=== PATIENT | female | born 1950 | race Caucasian/White ===

== ENCOUNTER 2016-12-22 05:21 | Inpatient (IN) ==
[2016-12-22] MEDS ORDERED: Ondansetron 4 MG/2 ML VIAL IVP ONE (05:48)
[2016-12-22] MEDS ORDERED: 0.9 % Sodium Chloride 1,000 ML IVC ONE (05:48)
--- NOTE | 2016-12-22 05:57 | Emergency Department Note ---
Disposition Clinical Impression: Nausea vomiting and diarrhea Pancreatic cancer Qualifiers: Pancreatic malignancy location: unspecified Qualified Code(s): C25.9 - Malignant neoplasm of pancreas, unspecified Disposition: Still a Patient Condition: Fair Referrals: Unassigned,Provider [Primary Care Provider] - Forms: ED Satisfaction Letter Time of Disposition: 06:20 Nausea/Vomiting/Diarrhea HPI - General Chief complaint: ED Nausea/Vomiting/Diarrhea Stated complaint: N/V/D-Chemo Time Seen by Provider: 12/22/16 05:32 Source: patient, family Limitations: no limitations Nursing Notes Reviewed: Yes Vital Signs Reviewed: Yes - History of Present Illness HPI Narrative: 66-year-old female diabetic former smoker with known history of pancreatic cancer ambulates to exam room with complaints of diarrhea and nausea vomiting. Nausea and vomiting occurs approximately every 3 days for the past 3 weeks. She states she was diagnosed with pancreatic cancer 2 years ago and was treated at that time with chemotherapy and whipple procedure. She mentions cancer had returned earlier this year was restarted on chemotherapy. She is followed by [facility] oncology, and states her last chemotherapy was approximately 2 weeks ago. Patient also mentioned she was visiting friends yesterday became diaphoretic and had vision changes, and her blood sugars checked and was shown to be in the 20s. She mentions diarrhea has been occurring for 4 weeks, denies any bloody stools. She mentions 8 pound weight loss since last month. she mentions some abdominal pain from the vomitting, other jensen today she denies any confusion, vision changes, weakness, diaphoresis, fevers, chest pain , shortness breath, near-syncopal symptoms, syncope. - Related Data Allergies Allergy/AdvReac Type Severity Reaction Status Date / Time cephalexin [From Keflex] Allergy Severe Rash Verified 12/22/16 05:28 influenza virus vaccine ts Allergy Severe Rash Verified 12/22/16 05:28 [id number] (36 mos+) [From Fluarix] Penicillins [PCN] Allergy Severe Rash Verified 12/22/16 05:28 rabies vaccine, duck-embryo Allergy Severe Rash Verified 12/22/16 05:28 [Rabies Vaccine,Duck-Embryo] Sulfa (Sulfonamide Allergy Severe Rash Verified 12/22/16 05:28 Antibiotics) All systems ED: reviewed and negative except as stated. Constitutional: Denies: fever, chills Eyes: Denies: eye pain ENT ED: Denies: ear pain Cardiovascular: Denies: chest pain, palpitations Respiratory: Denies: dyspnea Gastrointestinal: Reports: as per HPI. 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 - Social History Smoking Status: Former smoker Alcohol use: Reports: none Drug use: Reports: none Physical Exam - General Limitations: no limitations General appearance: alert, in no apparent distress - Head Head exam: normocephalic - Eye Eye exam: Present: EOMI - ENT ENT exam: normal oropharynx, mucous membranes moist - Neck Neck exam: Present: full ROM - Chest Chest inspection: Present: symmetric chest wall rise - Respiratory Respiratory exam: Absent: respiratory distress - Cardiovascular Cardiovascular exam: Present: tachycardia - Abdominal Exam Abdominal exam: Present: soft, Non-Tender - Extremities Exam Extremities exam: Present: full ROM, normal capillary refill - Back Exam Back exam: Present: full ROM - Neurological Exam Neurological exam: Present: alert, oriented X3 - Psychiatric Psychiatric exam: Present: normal affect, normal mood - Skin Skin exam: Present: warm, dry, intact, normal color. Absent: rash, cyanosis, diaphoresis Course Course Narrative: Patient presents with nausea vomiting diarrhea. Known history of pancreatic cancer. Last chemotherapy at [facility] approximately 2 weeks ago. Had episode of hypoglycemia yesterday. Patient denies any recent illness, fever, confusion. Patient denies any nausea at this time. Patient seen and examined. She is in no acute distress, she does on the toxic. She is slightly tachycardia otherwise vitals within normal limits. Will initiate evaluation for possible source of infection, lab work. Accucheck 43 upon patient's arrive to exam room. Dextrose ordered. Fluids ordered. - Reevaluation(s) Reevaluation #1: At this time, it is the end my shift, care of this patient will be transferred over to take shift who will handle further workup orders, evaluation, and dispo. Please see their following documentation for details. Report given. Time: 06:19 Vital Signs Temperature 98.0 F 12/22/16 05:21 Pulse Rate 118 12/22/16 05:21 Respiratory Rate 16 12/22/16 05:21 Blood Pressure 121/75 12/22/16 05:21 O2 Sat by Pulse Oximetry 98 12/22/16 05:21 Temperature 98.0 F 12/22/16 05:21 Pulse Rate 118 12/22/16 05:21 Respiratory Rate 16 12/22/16 05:21 Blood Pressure 121/75 12/22/16 05:21 O2 Sat by Pulse Oximetry 98 12/22/16 05:21 Oxygen Delivery Oxygen Delivery Room Air Nausea/Vomiting/Diarrhea - Lab Data Lab Results 12/22/16 12/22/16 Range/Units 06:02 06:03 POC Glucose 43 L* 44 L* (58-89)
[2016-12-22] MEDS ORDERED: *HR* Dextrose 50 % in Water (Syg) 50 ML SYRINGE IVP ONE (06:05)
--- NOTE | 2016-12-22 06:18 | Emergency Department Note ---
Disposition Clinical Impression: Nausea vomiting and diarrhea, Hypokalemia Pancreatic cancer Qualifiers: Pancreatic malignancy location: unspecified Qualified Code(s): C25.9 - Malignant neoplasm of pancreas, unspecified Disposition: Admitted As Inpatient Condition: Fair Referrals: Unassigned,Provider [Non-Partnered Physician] - Forms: ED Satisfaction Letter Time of Disposition: 07:58 Nausea/Vomiting/Diarrhea HPI - General Chief complaint: ED Nausea/Vomiting/Diarrhea Stated complaint: N/V/D-Chemo Time Seen by Provider: 12/22/16 05:32 Source: patient, family Limitations: no limitations - History of Present Illness Pt Subjective Complaint: nausea, vomiting, diarrhea - Related Data Allergies Allergy/AdvReac Type Severity Reaction Status Date / Time cephalexin [From Keflex] Allergy Severe Rash Verified 12/22/16 05:28 influenza virus vaccine ts Allergy Severe Rash Verified 12/22/16 05:28 [id number] (36 mos+) [From Fluarix] Penicillins [PCN] Allergy Severe Rash Verified 12/22/16 05:28 rabies vaccine, duck-embryo Allergy Severe Rash Verified 12/22/16 05:28 [Rabies Vaccine,Duck-Embryo] Sulfa (Sulfonamide Allergy Severe Rash Verified 12/22/16 05:28 Antibiotics) Past Medical History - Past Medical History Medical history: Reports: cancer, diabetes, valvular heart disease Psychiatric history: Reports: 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 Absent: nystagmus - ENT ENT exam: mucous membranes moist - Neck Neck exam: Present: normal inspection, full ROM, trachea midline - Chest Chest inspection: Present: normal inspection, symmetric chest wall rise - Cardiovascular Cardiovascular exam: Present: regular rate, normal rhythm, normal heart sounds - Abdominal Exam Abdominal exam: Present: soft, tenderness, normal bowel sounds. Absent: distention, guarding, rebound, rigidity Abdominal tenderness: Present: diffuse, mild - Extremities Exam Extremities exam: Present: normal inspection, full ROM. Absent: tenderness, pedal edema - Neurological Exam Neurological exam: Present: alert, oriented X3 - Psychiatric Psychiatric exam: Present: normal affect, normal mood - Skin Skin exam: Present: warm, dry, intact, normal color. Absent: rash, cyanosis, diaphoresis, erythema, pallor, mottled Course Course Narrative: 0600: I have assumed care of this patient from NAA Ndiaye due to shift change. Briefly, the patient is a 66 year old female with a known history of pancreatic cancer. She presented with a complaint of diarrhea for the last 4 weeks and intermittent episodes of nausea and vomiting for the past 3 weeks. She states that she is experiencing these episodes of N/V "about every 3 days", however her diarrhea has been consistent. She also complains of an episode of diaphoresis associated with hypoglycemia yesterday evening. She states that when her checked her glucose, it was found to be 25. She also c/o an 8 pound weight loss over the past month. She has fairly recently been re-started on chemotherapy in October of this year. She is followed by oncology at the [facility]. She denies any fever, cough, chest pain, shortness of breath, bloody stools. She does admit to a fairly recent, but brief antibiotic use. She states that approximately 2 weeks ago, she was started on a 10 day course of Levaquin for bronchitis, per her PCP. She states that the Levaquin hurt her stomach and caused diarrhea. She was instructed to discontinue the levaquin after only 3 days. Please see previous midlevel documentation for care performed prior to 0600. 0642: I was notified by ADELSO Snyder at a critical low potassium of 2.4. A 40 mEq potassium rider has been ordered at this time. 0745: I discussed this patient's case with Dr. Teirney. Dr. Tierney had a face -to-face evaluation with the patient. Dr. Tierney recommends consultation with the hospitalist for admission to the hospitalist service. At this time, I am awaiting a callback from the hospitalist. - Consultations Consultation #1: I spoke with Dr. Nugent, hospitalist. Dr. Nugent accepts the patient for admission to the hospitalist service. Time: 08:18 Vital Signs Temperature 98.0 F 12/22/16 05:21 Pulse Rate 118 12/22/16 05:21 Respiratory Rate 16 12/22/16 05:21 Blood Pressure 121/75 03/11/17 05:21 O2 Sat by Pulse Oximetry 98 12/22/16 05:21 Temperature 98.0 F 12/22/16 05:21 Pulse Rate 85 12/22/16 08:06 Respiratory Rate 18 12/22/16 08:06 Blood Pressure 118/63 12/22/16 08:06 O2 Sat by Pulse Oximetry 99 12/22/16 08:06 Oxygen Delivery Oxygen Delivery Room Air Nausea/Vomiting/Diarrhea - MDM Narrative Medical decision making narrative: Cardiac monitoring and an EKG has been ordered for the sole purpose of the patient's hypokalemia. The patient denies any shortness of breath, or chest pain. - Medical Records Medical records reviewed: Yes I reviewed the patient's medical records. - Lab Data Lab results reviewed: Yes I reviewed the patient's lab results. Lab results narrative: Laboratory Last Values WBC 7.2 K/mcL (4.3-11.1) 12/22/16 06:15 RBC 2.55 M/mcL (3.82-4.97) L 12/22/16 06:15 Hgb 8.2 g/dL (11.5-15.4) L 12/22/16 06:15 Hct 24.6 % (35.3-44.9) L 12/22/16 06:15 MCV 96.5 fL (83.0-100.0) 12/22/16 06:15 MCH 32.2 pg (28.0-33.3) 12/22/16 06:15 MCHC 33.3 g/dL (31.6-35.5) 12/22/16 06:15 RDW 17.4 % (11.5-14.5) H 12/22/16 06:15 Plt Count 96 K/mcL (140-400) L 12/22/16 06:15 MPV 11.2 fL (9.4-12.4) 12/22/16 06:15 Seg Neutrophils % 62.0 % 12/22/16 06:15 Band Neutrophils % 8.0 % (0-4) H 12/22/16 06:15 Lymphocytes % 24.0 % 12/22/16 06:15 Monocytes % 6.0 % 12/22/16 06:15 Neutrophils # 5.0 K/mcL (1.6-8.9) 12/22/16 06:15 Lymphocytes # 1.7 K/mcL (0.6-4.6) 12/22/16 06:15 Monocytes # 0.4 K/mcL (0.0-1.3) 12/22/16 06:15 Toxic Granulation Present (Not Present) A 12/22/16 06:15 Platelet Estimate Decreased (Normal) L 12/22/16 06:15 Hypochromasia Present (Not Present) A 12/22/16 06:15 Anisocytosis 1+ (Not Present) A 12/22/16 06:15 Macrocytosis Present (Not Present) A 12/22/16 06:15 Tear Drop Cells 1+ (Not Present) A 12/22/16 06:15 Sodium 137 mEq/L (136-145) 12/22/16 06:15 Potassium 2.4 mEq/L (3.5-4.5) L* 12/22/16 06:15 Chloride 108 mEq/L (98-109) 12/22/16 06:15 Carbon Dioxide 16 mEq/L (19-29) L 12/22/16 06:15 BUN 3 mg/dL (7-20) L 12/22/16 06:15 Creatinine 0.66 mg/dL (0.57-1.11) 12/22/16 06:15 Est GFR ( Amer) > 60 (> 60) 12/22/16 06:15 Est GFR (Non-Af Amer) > 60 (> 60) 12/22/16 06:15 BUN/Creatinine Ratio 5 (6-26) L 12/22/16 06:15 Glucose 44 mg/dL (70-99) L 12/22/16 06:15 POC Glucose 44 (58-89) L* 12/22/16 06:03 Calculated Osmolality 278 (280-300) L 12/22/16 06:15 Lactic Acid 1.3 mmol/L (0.5-2.2) 12/22/16 07:30 Calcium 7.6 mg/dL (8.6-10.8) L 12/22/16 06:15 Phosphorus 2.9 mg/dL (2.3-4.7) 12/22/16 07:30 Magnesium 0.8 mg/dL (1.6-2.6) L 12/22/16 07:30 Urine Color Yellow (Yellow) 12/22/16 06:35 Urine Clarity Clear (Clear) 12/22/16 06:35 Urine pH 6.0 pH Units (5.0-8.0) 12/22/16 06:35 Ur Specific [place] 1.017 (1.010-1.025) 12/22/16 06:35 Urine Protein Trace mg/dL (Neg-Trace) 12/22/16 06:35 Urine Glucose (UA) >=1000 mg/dL (Normal) H 12/22/16 06:35 Urine Ketones Negative mg/dL (Negative) 12/22/16 06:35 Urine Blood Small (Negative) H 12/22/16 06:35 Urine Nitrite Negative (Negative) 12/22/16 06:35 Urine Bilirubin Negative (Negative) 12/22/16 06:35 Urine Urobilinogen Normal mg/dL (Normal) 12/22/16 06:35 Ur Leukocyte Esterase Negative (Negative) 12/22/16 06:35 Urine Microscopic RBC 0-3 per hpf (0-3) 12/22/16 06:35 Urine Microscopic WBC 5-15 per hpf (0-3) H 12/22/16 06:35 Ur Squamous Epith Cells Many per lpf (None-Few) H 12/22/16 06:35 Urine Bacteria Moderate per hpf (None-Few) H 12/22/16 06:35 Hyaline Casts None Seen per lpf (None-Few) 12/22/16 06:35 Ur Culture Indicated? YES (NO) A 12/22/16 06:35 Result diagrams: 12/22/16 06:15 12/22/16 06:15 Lab Results 12/22/16 12/22/16 12/22/16 Range/Units 06:02 06:03 06:15 WBC 7.2 (4.3-11.1) K/mcL RBC 2.55 L (3.82-4.97) M/mcL Hgb 8.2 L (11.5-15.4) g/dL Hct 24.6 L (35.3-44.9) % MCV 96.5 (83.0-100.0) fL MCH 32.2 (28.0-33.3) pg MCHC 33.3 (31.6-35.5) g/dL RDW 17.4 H (11.5-14.5) % Plt Count 96 L (140-400) K/mcL MPV 11.2 (9.4-12.4) fL Seg Neutrophils % 62.0 % Band Neutrophils % 8.0 H (0-4) % Lymphocytes % 24.0 % Monocytes % 6.0 % Neutrophils # 5.0 (1.6-8.9) K/mcL Lymphocytes # 1.7 (0.6-4.6) K/mcL Monocytes # 0.4 (0.0-1.3) K/mcL Toxic Granulation Present A (Not Present) Platelet Estimate Decreased L (Normal) Hypochromasia Present A (Not Present) Anisocytosis 1+ A (Not Present) Macrocytosis Present A (Not Present) Tear Drop Cells 1+ A (Not Present) Sodium (136-145) mEq/L Potassium (3.5-4.5) mEq/L Chloride (98-109) mEq/L Carbon Dioxide (19-29) mEq/L BUN (7-20) mg/dL Creatinine (0.57-1.11) mg/dL Est GFR ( Amer) (> 60) Est GFR (Non-Af Amer) (> 60) BUN/Creatinine Ratio (6-26) Glucose (70-99) mg/dL POC Glucose 43 L* 44 L* (58-89) Calculated Osmolality (280-300) Lactic Acid (0.5-2.2) mmol/L Calcium (8.6-10.8) mg/dL Phosphorus (2.3-4.7) mg/dL Magnesium (1.6-2.6) mg/dL Urine Color (Yellow) Urine Clarity (Clear) Urine pH (5.0-8.0) pH Units Ur Specific [place] (1.010-1.025) Urine Protein (Neg-Trace) mg/dL Urine Glucose (UA) (Normal) mg/dL Urine Ketones (Negative) mg/dL Urine Blood (Negative) Urine Nitrite (Negative) Urine Bilirubin (Negative) Urine Urobilinogen (Normal) mg/dL Ur Leukocyte Esterase (Negative) Urine Microscopic RBC (0-3) per hpf Urine Microscopic WBC (0-3) per hpf Ur Squamous Epith Cells (None-Few) per lpf Urine Bacteria (None-Few) per hpf Hyaline Casts (None-Few) per lpf Ur Culture Indicated? (NO) 12/22/16 12/22/16 12/22/16 Range/Units 06:15 06:35 07:30 WBC (4.3-11.1) K/mcL RBC (3.82-4.97) M/mcL Hgb (11.5-15.4) g/dL Hct (35.3-44.9) % MCV (83.0-100.0) fL MCH (28.0-33.3) pg MCHC (31.6-35.5) g/dL RDW (11.5-14.5) % Plt Count (140-400) K/mcL MPV (9.4-12.4) fL Seg Neutrophils % % Band Neutrophils % (0-4) % Lymphocytes % % Monocytes % % Neutrophils # (1.6-8.9) K/mcL Lymphocytes # (0.6-4.6) K/mcL Monocytes # (0.0-1.3) K/mcL Toxic Granulation (Not Present) Platelet Estimate (Normal) Hypochromasia (Not Present) Anisocytosis (Not Present) Macrocytosis (Not Present) Tear Drop Cells (Not Present) Sodium 137 (136-145) mEq/L Potassium 2.4 L* (3.5-4.5) mEq/L Chloride 108 (98-109) mEq/L Carbon Dioxide 16 L (19-29) mEq/L BUN 3 L (7-20) mg/dL Creatinine 0.66 (0.57-1.11) mg/dL Est GFR ( Amer) > 60 (> 60) Est GFR (Non-Af Amer) > 60 (> 60) BUN/Creatinine Ratio 5 L (6-26) Glucose 44 L (70-99) mg/dL POC Glucose (58-89) Calculated Osmolality 278 L (280-300) Lactic Acid 1.3 (0.5-2.2) mmol/L Calcium 7.6 L (8.6-10.8) mg/dL Phosphorus (2.3-4.7) mg/dL Magnesium (1.6-2.6) mg/dL Urine Color Yellow (Yellow) Urine Clarity Clear (Clear) Urine pH 6.0 (5.0-8.0) pH Units Ur Specific [place] 1.017 (1.010-1.025) Urine Protein Trace (Neg-Trace) mg/dL Urine Glucose (UA) >=1000 H (Normal) mg/dL Urine Ketones Negative (Negative) mg/dL Urine Blood Small H (Negative) Urine Nitrite Negative (Negative) Urine Bilirubin Negative (Negative) Urine Urobilinogen Normal (Normal) mg/dL Ur Leukocyte Esterase Negative (Negative) Urine Microscopic RBC 0-3 (0-3) per hpf Urine Microscopic WBC 5-15 H (0-3) per hpf Ur Squamous Epith Cells Many H (None-Few) per lpf Urine Bacteria Moderate H (None-Few) per hpf Hyaline Casts None Seen (None-Few) per lpf Ur Culture Indicated? YES A (NO) 12/22/16 Range/Units 07:30 WBC (4.3-11.1) K/mcL RBC (3.82-4.97) M/mcL Hgb (11.5-15.4) g/dL Hct (35.3-44.9) % MCV (83.0-100.0) fL MCH (28.0-33.3) pg MCHC (31.6-35.5) g/dL RDW (11.5-14.5) % Plt Count (140-400) K/mcL MPV (9.4-12.4) fL Seg Neutrophils % % Band Neutrophils % (0-4) % Lymphocytes % % Monocytes % % Neutrophils # (1.6-8.9) K/mcL Lymphocytes # (0.6-4.6) K/mcL Monocytes # (0.0-1.3) K/mcL Toxic Granulation (Not Present) Platelet Estimate (Normal) Hypochromasia (Not Present) Anisocytosis (Not Present) Macrocytosis (Not Present) Tear Drop Cells (Not Present) Sodium (136-145) mEq/L Potassium (3.5-4.5) mEq/L Chloride (98-109) mEq/L Carbon Dioxide (19-29) mEq/L BUN (7-20) mg/dL Creatinine (0.57-1.11) mg/dL Est GFR ( Amer) (> 60) Est GFR (Non-Af Amer) (> 60) BUN/Creatinine Ratio (6-26) Glucose (70-99) mg/dL POC Glucose (58-89) Calculated Osmolality (280-300) Lactic Acid (0.5-2.2) mmol/L Calcium (8.6-10.8) mg/dL Phosphorus 2.9 (2.3-4.7) mg/dL Magnesium 0.8 L (1.6-2.6) mg/dL Urine Color (Yellow) Urine Clarity (Clear) Urine pH (5.0-8.0) pH Units Ur Specific [place] (1.010-1.025) Urine Protein (Neg-Trace) mg/dL Urine Glucose (UA) (Normal) mg/dL Urine Ketones (Negative) mg/dL Urine Blood (Negative) Urine Nitrite (Negative) Urine Bilirubin (Negative) Urine Urobilinogen (Normal) mg/dL Ur Leukocyte Esterase (Negative) Urine Microscopic RBC (0-3) per hpf Urine Microscopic WBC (0-3) per hpf Ur Squamous Epith Cells (None-Few) per lpf Urine Bacteria (None-Few) per hpf Hyaline Casts (None-Few) per lpf Ur Culture Indicated? (NO) - Radiology Data Radiology results reviewed: Yes I reviewed the patient's radiology results. Chest X-Ray 12/22/16 05:52 IMPRESSION: No acute finding or significant interval change. D/ / Chase Belcher MD / Chase Belcher MD Interpreting Provider: Chase Belcher MD - EKG Data EKG attestation: Yes I reviewed and interpreted this EKG. EKG results narrative: EKG reviewed by Dr. Tierney as well. EKG shows a sinus rhythm at a rate of 83 bpm with no ectopy noted. No STEMI.
[2016-12-22 06:28] LABS: Hematocrit 24.6 % (35.3-44.9); Hemoglobin 8.2 g/dL (11.5-15.4); Mean Corpuscular HGB Conc 33.3 g/dL (31.6-35.5); Mean Corpuscular Hemoglobin 32.2 pg (28.0-33.3); Mean Corpuscular Volume 96.5 fL (83.0-100.0); Mean Platelet Volume 11.2 fL (9.4-12.4); Red Blood Count 2.55 M/mcL (3.82-4.97); Red Cell Distribution Width 17.4 % (11.5-14.5)
[2016-12-22 06:29] LABS: Platelet Count 96 K/mcL (140-400)
[2016-12-22 06:41] LABS: BUN/Creatinine Ratio 5 (6-26); Calcium 7.6 mg/dL (8.6-10.8); Carbon Dioxide 16 mEq/L (19-29); Chloride 108 mEq/L (98-109); Glucose 44 mg/dL (70-99); Osmolality,Calculated 278 (280-300); Sodium 137 mEq/L (136-145); eGFR For African Americans > 60 (> 60); eGFR For Non-African Americans > 60 (> 60)
[2016-12-22 06:42] LABS: Blood Urea Nitrogen 3 mg/dL (7-20)
[2016-12-22 06:43] LABS: Potassium 2.4 mEq/L (3.5-4.5)
[2016-12-22 06:48] LABS: Bilirubin,Urine Negative (Negative); Blood,Urine Small (Negative); Clarity,Urine Clear (Clear); Color,Urine Yellow (Yellow); Glucose,Urine (UA) >=1000 mg/dL (Normal); Ketones,Urine Negative (Negative); Leukocyte Esterase,Urine Negative (Negative); Nitrite,Urine Negative (Negative); Protein,Urine Trace mg/dL (Neg-Trace); Specific Gravity,Urine 1.017 (1.010-1.025); Urobilinogen,Urine Normal (Normal)
[2016-12-22 06:51] LABS: Bacteria,Urine Moderate per hpf (None-Few); Hyaline Casts,Urine None Seen per lpf (None-Few); RBC,Urine 0-3 per hpf (0-3); Squamous Epithelial Cell,Urine Many per lpf (None-Few)
[2016-12-22 06:57] LABS: Lymphocytes # 1.7 K/mcL (0.6-4.6); Monocytes # 0.4 K/mcL (0.0-1.3)
[2016-12-22 06:58] LABS: Anisocytosis 1+ (Not Present); Hypochromasia Present (Not Present); Macrocytosis Present (Not Present); Platelet Estimate Decreased (Normal)
[2016-12-22 06:59] LABS: Tear Drop Cells 1+ (Not Present); Toxic Granulation Present (Not Present)
[2016-12-22 07:51] LABS: Magnesium 0.8 mg/dL (1.6-2.6); Phosphorous 2.9 mg/dL (2.3-4.7)
--- NOTE | 2016-12-22 07:57 | Emergency Department Note ---
START Narrative - START START: I examined this patient and my medical decision-making was reviewed with the C[employer] PRINT MACHINE OPERATOR/PA/Advanced Practice Nurse/Resident Physician. I agree with the documented findings, disposition and treatment plan as described except to the extent set forth below. ED attending note: Patient seen with nurse practitioner Jose Beck. Please see a copy of his note for details of the H&P, evaluation, management and disposition of this patient. We independently had [id number] contact with the patient Briefly: Bowel cachectic 66-year-old female with intractable diarrhea and generalized weakness. History of pancreatic cancer on chemotherapy. Patient looks cachectic dehydrated. She was tachycardic on arrival 118. Feeling a little bit better after a liter of saline. Patient's hemoglobin is down 8.4 it was 10.2 about a month and a half ago, potassium critically low at 2.4. His getting repleted via IV. Due to the patient's presentation and her symptoms she will be admitted for hypokalemia and intractable diarrhea with failure to thrive. Awaiting callback from hospitalist. Patient stable.
--- NOTE | 2016-12-22 11:14 | Internal Med History&Physical ---
Date of Encounter: 12/22/16 Time of Encounter: 11:12 Assessment and Plan (1) Hypomagnesemia Current visit: Yes Status: Acute 2 g IV magnesium and recheck magnesium level later today. (2) Insulin dependent diabetes mellitus Current visit: Yes Status: Acute She had an episode of hypoglycemia yesterday. I will hold all insulin and check blood glucose fingerstick every 6 hours. start hypoglycemia protocol. (3) Hypokalemia Current visit: Yes Status: Acute IV potassium supplementation. Recheck potassium levels in 8 hours. (4) Nausea vomiting and diarrhea Current visit: Yes Status: Acute Likely secondary to chemotherapy. She is at high risk for C. difficile due to chemotherapy and therefore wall test her for that. We will treat her symptomatically with IV Zofran and Phenergan. (5) Pancreatic cancer Current visit: Yes Status: Acute Follow-up with oncology outpatient at [facility] post discharge. Qualifiers: Pancreatic malignancy location: unspecified Qualified Code(s): C25.9 - Malignant neoplasm of pancreas, unspecified (6) DVT prophylaxis Current visit: Yes Status: Acute Encourage early ambulation. We will use SCDs. I would avoid anticoagulation due to mild thrombocytopenia. Internal Medicine - H&P: HPI Chief complaint: Nausea and vomiting Admitted From: Emergency Dept Plans for Post Hospital Care: Home History of present illness: Ms. Chirinos is a 66 year old female with past medical history significant for hypertension, diabetes and pancreatic cancer undergoing chemotherapy who presented to the hospital for nausea and vomiting. She states that she has been having nausea vomiting and diarrhea on and off for the last 4 weeks, for the last 2 days she could not keep anything down and felt like she was getting dehydrated. She denies any aggravating or alleviating factors. She denies associated abdominal pain chest pain or shortness of breath. Denies cough. Denies fever. She was evaluated in the emergency department and found to have hypokalemia and hypomagnesemia. Her last chemotherapy was 2 weeks ago. A 10 point review of systems was negative except as above. Family history positive for widespread cancer in the patient's father and Alzheimer's dementia and the patient's mother. Past Med Surg Social Fam HX - Past Medical History Medical history: arthritis, cancer, diabetes, hyperlipidemia, valvular heart disease Psychiatric history: no psych history - Social History Smoking Status: Former smoker Alcohol use: none Drug use: none Internal Medicine - H&P: Meds Allergies cephalexin [From Keflex] Allergy (Severe, Verified 12/22/16 05:28) Rash influenza virus vaccine ts [id number] (36 mos+) [From Fluarix] Allergy (Severe, Verified 12/22/16 05:28) Rash Penicillins [PCN] Allergy (Severe, Verified 12/22/16 05:28) Rash rabies vaccine, duck-embryo [Rabies Vaccine,Duck-Embryo] Allergy (Severe, Verified 12/22/16 05:28) Rash Sulfa (Sulfonamide Antibiotics) Allergy (Severe, Verified 12/22/16 05:28) Rash All Systems PM: A 10-system review of systems was performed and is negative for pertinent findings except as documented above in the HPI. - Constitutional Vitals: Temp Pulse Resp BP Pulse Ox 97.6 F 85 16 119/70 99 12/22/16 10:52 12/22/16 10:52 12/22/16 10:52 12/22/16 10:52 12/22/16 10:52 - Eye Eye exam: Present: PERRL, conjuntiva pink, sclera anicteric Pupils: Present: PERRL - Cardiovascular Cardiovascular exam: Present: RRR, +S1, +S2. Absent: diastolic murmur, gallop, rubs, systolic murmur - GI/Abdominal GI/Abdominal exam: Present: normal bowel sounds, soft, no peritoneal signs. Absent: distended, tenderness - Extremities Exam Extremities exam: Present: warm, radial pulses palpable and symetrical. Absent : calf tenderness, cyanotic, pedal edema - Neurological Exam Neurological exam: Present: CN II-XII intact, oriented X3, no focal deficits. Absent: pronater drift, facial droop, speech deficit - Skin Skin exam: Present: dry, intact Internal Med - H&P Results - Labs CBC & Chem 7: 12/22/16 06:15 12/22/16 06:15
[2016-12-22] MEDS ORDERED: Ondansetron 4 MG/2 ML VIAL IVP PRN (11:20)
[2016-12-22] MEDS ORDERED: Acetaminophen 325 MG TABLET PO PRN (11:20)
[2016-12-22] MEDS ORDERED: Magnesium Sulfate 3 GM in D5% in Water 100 ML IVPB ONE ×2 (11:24→12:45)
[2016-12-22] MEDS ORDERED: D5% in Water 1,000 ML IV PRN (11:26)
[2016-12-22] MEDS ORDERED: Dextrose Gel 15 GM PO PRN ×2 (11:26)
[2016-12-22] MEDS ORDERED: *HR* Dextrose 50 % in Water (Syg) 50 ML SYRINGE IVP PRN (11:26)
[2016-12-22] MEDS ORDERED: 0.9 % Sodium Chloride 1,000 ML IVC SCH (11:30)
[2016-12-22] MEDS ORDERED: *HR* Codeine Sulfate 30 MG TABLET PO PRN (12:13)
[2016-12-22] MEDS ORDERED: *HR* OxyCODONE Immed Rel 5 MG TABLET PO PRN (12:13)
[2016-12-22] MEDS: Pantoprazole 40 MG VIAL IVP SCH (12:39)
[2016-12-22] MEDS: Diphenoxylate/Atropine 1 TAB TABLET PO SCH ×3 (12:39→21:56)
[2016-12-22 16:23] LABS: Adenovirus F 40/41 PCR Not detected (Not detect); Astrovirus PCR Not detected (Not detect); C.difficile Toxin A/B by PCR Not detected (Not detect); Campylobacter by PCR Not detected (Not detect); Cryptosporidium by PCR Not detected (Not detect); Cyclospora cayetanensis PCR Not detected (Not detect); E. coli O157 by PCR Not detected (Not detect); Entamoeba histolytica PCR Not detected (Not detect); Enteroaggregative E.coli(EAEC) Not detected (Not detect); Enteropathogenic E.coli(EPEC) Not detected (Not detect); Enterotoxigenic E.coli (ETEC) Not detected (Not detect); Giardia lamblia PCR Not detected (Not detect); Norovirus GI/GII PCR Not detected (Not detect); Plesiomonas shigelloides PCR Not detected (Not detect); Rotavirus A PCR Not detected (Not detect); Salmonella PCR Not detected (Not detect); Sapovirus PCR Not detected (Not detect); Shig/EnteroinvasiveE coli EIEC Not detected (Not detect); Shigalike tox-prod E coli STEC Not detected (Not detect); Vibrio PCR Not detected (Not detect); Vibrio cholerae PCR Not detected (Not detect); Yersinia enterocolitica PCR Not detected (Not detect)
[2016-12-22 18:38] LABS: BUN/Creatinine Ratio 3 (6-26); Calcium 6.7 mg/dL (8.6-10.8); Carbon Dioxide 16 mEq/L (19-29); Chloride 109 mEq/L (98-109); Glucose 120 mg/dL (70-99); Osmolality,Calculated 275 (280-300); Potassium 2.7 mEq/L (3.5-4.5); Sodium 134 mEq/L (136-145); eGFR For African Americans > 60 (> 60); eGFR For Non-African Americans > 60 (> 60)
[2016-12-22 18:39] LABS: Blood Urea Nitrogen < 2 mg/dL (7-20)
[2016-12-22] MEDS: Patient Taking Own Medication 1 EACH PO SCH (21:57)
[2016-12-23 04:12] LABS: Hematocrit 20.9 % (35.3-44.9); Immature Platelets 6.3 % (1.1-6.1); Mean Corpuscular HGB Conc 33.5 g/dL (31.6-35.5); Mean Corpuscular Hemoglobin 32.6 pg (28.0-33.3); Mean Corpuscular Volume 97.2 fL (83.0-100.0); Red Blood Count 2.15 M/mcL (3.82-4.97); Red Cell Distribution Width 17.9 % (11.5-14.5)
[2016-12-23 04:33] LABS: BUN/Creatinine Ratio 4 (6-26); Calcium 6.8 mg/dL (8.6-10.8); Carbon Dioxide 20 mEq/L (19-29); Chloride 110 mEq/L (98-109); Glucose 88 mg/dL (70-99); Magnesium 1.5 mg/dL (1.6-2.6); Osmolality,Calculated 278 (280-300); Sodium 136 mEq/L (136-145); eGFR For African Americans > 60 (> 60); eGFR For Non-African Americans > 60 (> 60)
[2016-12-23 04:34] LABS: Potassium 3.8 mEq/L (3.5-4.5)
[2016-12-23 04:35] LABS: Blood Urea Nitrogen < 2 mg/dL (7-20)
[2016-12-23] MEDS: Diphenoxylate/Atropine 1 TAB TABLET PO SCH ×4 (07:27→21:19)
[2016-12-23] MEDS: Loratadine 10 MG TABLET PO SCH (07:28)
[2016-12-23] MEDS: Isosorbide MONOnitrate (24 HR) 30 MG TAB.ER.24H PO SCH (07:28)
[2016-12-23] MEDS: Pantoprazole 40 MG VIAL IVP SCH (07:29)
[2016-12-23] MEDS ORDERED: Magnesium Sulfate 2 GM in D5% in Water 100 ML IVPB ONE (08:09)
[2016-12-23] MEDS: Levofloxacin 750 MG/150 ML 750 MG/150 ML BAG IVPB SCH (10:30)
--- NOTE | 2016-12-23 11:11 | Internal Med Progress Note ---
Date of Encounter: 12/23/16 Time of Encounter: 09:55 - Assessment and plan (1) UTI (urinary tract infection) Current Visit: Yes Status: Acute Assessment and plan: Urine culture GNR Awaiting final sensitivity Start on levaquin Patient has allergies to pen, cef, and sulfa Qualifiers: Urinary tract infection type: acute cystitis Hematuria presence: without hematuria Qualified Code(s): N30.00 - Acute cystitis without hematuria (2) Gastroenteritis Current Visit: Yes Status: Acute Assessment and plan: Stool work up negative Patient stated no more episodes Continue supportive care (3) Hypokalemia Current Visit: Yes Status: Acute Assessment and plan: Improved from 2.7 to 3.8 Continue to monitor (4) Hypomagnesemia Current Visit: Yes Status: Acute Assessment and plan: Replaced IV Rpt a.m (5) Insulin dependent diabetes mellitus Current Visit: Yes Status: Chronic Assessment and plan: A1C 7.7 Patient had an episode of hypoglycemia FS acceptable for now, continue to monitor (6) Pancreatic cancer Current Visit: Yes Status: Acute Qualifiers: Pancreatic malignancy location: unspecified Qualified Code(s): C25.9 - Malignant neoplasm of pancreas, unspecified (7) DVT prophylaxis Current Visit: Yes Status: Acute Assessment and plan: Thrombocytopenia , SCDs, ambulate prn (8) Anemia Current Visit: Yes Status: Chronic Assessment and plan: Stable, possibly secondary to chronic disease Qualifiers: Anemia type: unspecified type Qualified Code(s): D64.9 - Anemia, unspecified - Subjective Interval history: 66 Y/O F with PMH of Pancreatic CA on chemo, DM, HLD, Valvular heart disease She is seen at bedside with her spouse She is admitted and being managed for gastroenteritis She also has hypomagnessemia, hypokalemia, and UTI - Constitutional Vitals: Temp Pulse Resp BP Pulse Ox 97.6 F 82 16 96/58 99 12/23/16 10:52 12/23/16 10:52 12/23/16 10:52 12/23/16 10:52 12/23/16 10:52 General appearance: Present: cachectic, A&O X 3, pleasant, no acute distress - Head Head exam: Present: atraumatic, normocephalic - Eye Eye exam: Present: PERRL, conjuntiva pink, sclera anicteric Pupils: Present: PERRL - Neck Neck exam general surgery: Present: supple, trachea midline. Absent: lymphadenopathy - Respiratory Respiratory exam: Present: CTAB Additional comments: Right port-a-cath - Cardiovascular Cardiovascular exam: Present: RRR, +S1, +S2. Absent: diastolic murmur, gallop, rubs, systolic murmur - GI/Abdominal GI/Abdominal exam: Present: normal bowel sounds, soft, no peritoneal signs. Absent: distended, tenderness - Extremities Exam Extremities exam: Present: warm, radial pulses palpable and symetrical. Absent : calf tenderness, cyanotic, pedal edema - Neurological Exam Neurological exam: Present: CN II-XII intact, oriented X3, no focal deficits. Absent: pronater drift, facial droop, speech deficit - Skin Skin exam: Present: dry, intact Internal Medicine: Result - Labs CBC & Chem 7: 12/23/16 09:00 12/23/16 04:00 Labs: Short CBC 12/23/16 12/23/16 Range/Units 04:00 09:00 WBC 4.9 (4.3-11.1) K/mcL Hgb 7.0 L 8.1 L (11.5-15.4) g/dL Hct 20.9 L (35.3-44.9) % Plt Count 76 L (140-400) K/mcL [facility] 12/22/16 12/23/16 18:15 04:00 Sodium 134 L 136 Potassium 2.7 L 3.8 D Chloride 109 110 H Carbon Dioxide 16 L 20 BUN < 2 L < 2 L Creatinine 0.60 0.55 L Glucose 120 H 88 Calcium 6.7 L 6.8 L Consult Discharge Plan - Plan Referrals: Alberta August, COMBINE INSPECTOR [Primary Care Provider] - (web request sent on 12/23/16)
[2016-12-23] MEDS: Patient Taking Own Medication 1 EACH PO SCH (21:20)
[2016-12-24 03:50] LABS: Hemoglobin 6.8 g/dL (11.5-15.4); Immature Granulocytes % 0.6 % (0-4); Mean Platelet Volume 10.7 fL (9.4-12.4)
[2016-12-24 03:52] LABS: Eosinophils % 0.3 %; Immature Platelets 7.4 % (1.1-6.1); Lymphocytes # 1.7 K/mcL (0.6-4.6); Mean Corpuscular Hemoglobin 32.9 pg (28.0-33.3); Mean Corpuscular Volume 96.6 fL (83.0-100.0); Monocytes # 0.5 K/mcL (0.0-1.3); Monocytes % 14.3 %; Neutrophils # 1.2 K/mcL (1.6-8.9); Platelet Count 76 K/mcL (140-400); Red Blood Count 2.07 M/mcL (3.82-4.97); Segmented Neutrophils % 34.8 %
[2016-12-24 04:03] LABS: BUN/Creatinine Ratio 7 (6-26); Calcium 7.2 mg/dL (8.6-10.8); Carbon Dioxide 29 mEq/L (19-29); Chloride 106 mEq/L (98-109); Glucose 109 mg/dL (70-99); Magnesium 1.6 mg/dL (1.6-2.6); Osmolality,Calculated 287 (280-300); Potassium 3.8 mEq/L (3.5-4.5); Sodium 140 mEq/L (136-145); eGFR For African Americans > 60 (> 60); eGFR For Non-African Americans > 60 (> 60)
[2016-12-24 04:04] LABS: Blood Urea Nitrogen 4 mg/dL (7-20)
[2016-12-24 06:26] LABS: Hemoglobin 7.7 g/dL (11.5-15.4)
[2016-12-24 07:45] VITALS: BP 145/84
[2016-12-24] MEDS: Levofloxacin 750 MG/150 ML 750 MG/150 ML BAG IVPB SCH (08:02)
[2016-12-24] MEDS: Diphenoxylate/Atropine 1 TAB TABLET PO SCH (08:07)
[2016-12-24] MEDS: Loratadine 10 MG TABLET PO SCH (08:07)
[2016-12-24] MEDS: Isosorbide MONOnitrate (24 HR) 30 MG TAB.ER.24H PO SCH (08:07)
[2016-12-24] MEDS: Pantoprazole 40 MG VIAL IVP SCH (08:09)
--- NOTE | 2016-12-24 09:57 | Discharge Summary ---
Date of Encounter: 12/24/16 Time of Encounter: 09:57 - Discharge Diagnosis (1) UTI (urinary tract infection) Priority: Primary Status: Acute Qualifiers: Urinary tract infection type: acute cystitis Hematuria presence: without hematuria Qualified Code(s): N30.00 - Acute cystitis without hematuria (2) Gastroenteritis Priority: Primary Status: Resolved (3) Hypokalemia Priority: Primary Status: Resolved (4) Hypomagnesemia Priority: Primary Status: Resolved (5) Insulin dependent diabetes mellitus Priority: Secondary Status: Chronic (6) Pancreatic cancer Priority: Secondary Status: Chronic Qualifiers: Pancreatic malignancy location: unspecified Qualified Code(s): C25.9 - Malignant neoplasm of pancreas, unspecified (7) DVT prophylaxis Priority: Secondary Status: Acute (8) Anemia Priority: Secondary Status: Chronic Qualifiers: Anemia type: unspecified type Qualified Code(s): D64.9 - Anemia, unspecified (9) Malnutrition of moderate degree Priority: Secondary Status: Chronic - Discharge Medications Prescriptions: Levofloxacin 750 mg PO DAILY #4 tablet Home Medications: Atenolol [Tenormin] 25 mg PO BID 12/22/16 [History] Atorvastatin [Lipitor] 20 mg PO DAILY 12/22/16 [History] Cetirizine HCl [All Day Allergy] 10 mg PO DAILY 12/22/16 [History] Cholecalciferol (D-3) [Vitamin D] 2,000 unit PO DAILY 12/22/16 [History] Codeine Sulfate 15 - 30 mg PO Q6H PRN 12/22/16 [History] Dexamethasone [Decadron] 4 mg PO AD 12/22/16 [History] Dicyclomine [Bentyl] 10 mg PO DAILY 12/22/16 [History] Diphenoxylate/Atropine [Lomotil 2.5 mg/0.025 mg] 1 - 2 tab PO QID 12/22/16 [ History] Ergocalciferol (VITAMIN D2) [Vitamin D2] 50,000 unit PO QWEEK 12/22/16 [History] Gabapentin 275 mg PO HS 12/22/16 [History] Guaifenesin 600 mg PO DAILY PRN 12/22/16 [History] Insulin Glargine [Lantus] 5 unit SQ DAILY 12/22/16 [History] Isosorbide MONOnitrate [Isosorbide Mononitrate] 15 mg PO DAILY 12/22/16 [History ] LORazepam [Ativan] 1 mg PO Q6H PRN 12/22/16 [History] Lipase/Protease/Amylase [Doug Grover 36,000 Units Capsule] 108,000 units PO TIDAC 12/22/16 [History] Metformin HCl [Metformin HCl ER] 500 mg PO DAILY 12/22/16 [History] Ondansetron HCl [Zofran] 4 mg PO Q4H PRN 12/22/16 [History] OxyCODONE Immed Rel [Roxicodone 5 MG] 5 - 10 mg PO Q4H PRN 12/22/16 [History] Pediatric Multivit Comb No.136 [Children Multivitamin] 1 tab PO DAILY 12/22/16 [ History] Prochlorperazine Maleate [Compazine] 10 mg PO Q6HR 12/22/16 [History] Rabeprazole Sodium [Aciphex] 20 mg PO DAILY 12/22/16 [History] Vitamin A 10,000 unit PO BID 12/22/16 [History] Vitamin E 400 unit PO BID 12/22/16 [History] Levofloxacin 750 mg PO DAILY #4 tablet 12/24/16 [Rx] Allergies/Adverse Reactions: Allergies cephalexin [From Keflex] Allergy (Severe, Verified 12/22/16 05:28) Rash influenza virus vaccine ts [id number] (36 mos+) [From Fluarix] Allergy (Severe, Verified 12/22/16 05:28) Rash Penicillins [PCN] Allergy (Severe, Verified 12/22/16 05:28) Rash rabies vaccine, duck-embryo [Rabies Vaccine,Duck-Embryo] Allergy (Severe, Verified 12/22/16 05:28) Rash Sulfa (Sulfonamide Antibiotics) Allergy (Severe, Verified 12/22/16 05:28) Rash Date of admission: 12/22/16 16:26 Primary care physician: Ablerta August CNP Discharging clinician: Abram Russell Anticipated date of discharge: 12/24/16 - Patient Status Disposition: Home, Self-Care Condition: Fair Functional capacity at discharge: independent ambulation Overall status at discharge: patient is progressing back to baseline - Discharge Instructions Instructions: Levofloxacin (By mouth), Acute Nausea and Vomiting (DC), Anemia ( GEN) Follow Up With: Alberta August, ANIMATOR [Primary Care Provider] - 12/31/16 1:00 pm () - Diet and Activity Activity: resume usual activities as tolerated Diet: advance to your usual diet Interval History: See below Hospital course: Ms. Chirinos is a 66 year old female She has a past medical history pancreatic cancer, diabetes mellitus, chronic anemia, hypertension, hyperlipidemia, valvular heart disease. She was admitted due to several episodes of nausea vomiting and diarrhea. Findings on admission also included hypomagnesemia, hypokalemia, hypoglycemia and Klebsiella UTI. She was managed conservatively with IV fluid hydration, replacement of multiple electrolytes abnormalities and antibiotics. She is seen at bedside this morning at spouse. She did not have any more episodes of diarrhea since admission Stool work up was negative She denies any new complaints. She is stable enough to go home. Resume chronic medications, levofloxacin by mouth. Follow up with PCP. Plan of care discussed with patient, verbalizes understanding. Patient advised for now to hold levemir, A1C is 7.7, due to multiple episodes of hypoglycemia, PCP may review and restart prn. Continue metformin however. Resume home medications Chronic conditions stable - Time Spent with Patient Total time spent providing and/or coordinating discharge services: Less than 30 minutes - Constitutional Vitals: Temp Pulse Resp BP Pulse Ox 97.6 F 129 16 145/84 93 L 12/24/16 07:43 12/24/16 07:43 12/24/16 07:43 12/24/16 07:43 12/24/16 07:43 General appearance: Present: cachectic, A&O X 3, pleasant, no acute distress - Head Head exam: Present: atraumatic, normocephalic - Eye Eye exam: Present: PERRL, conjuntiva pink, sclera anicteric Pupils: Present: PERRL - Neck Neck exam general surgery: Present: supple, trachea midline. Absent: lymphadenopathy - Respiratory Respiratory exam: Present: CTAB. Absent: accessory muscle use, rales, rhonchi, wheezes - Cardiovascular Cardiovascular exam: Present: RRR, +S1, +S2. Absent: diastolic murmur, gallop, rubs, systolic murmur - GI/Abdominal GI/Abdominal exam: Present: normal bowel sounds, soft, no peritoneal signs. Absent: distended, tenderness - Extremities Exam Extremities exam: Present: warm, radial pulses palpable and symetrical. Absent : calf tenderness, cyanotic, pedal edema - Neurological Exam Neurological exam: Present: CN II-XII intact, oriented X3, no focal deficits. Absent: pronater drift, facial droop, speech deficit - Skin Skin exam: Present: dry, intact
--- NOTE | 2016-12-24 15:18 | Electrocardiograph Report ---
[place] [id number] Test Date: 2016-12-22 Pat Name: Anay Chirinos Department: 103 Room: 2A43 Gender: F [employer]: : 1950 Requested By: Jose Beck Order Number: [id number] Reading MD: Jett Nunez Measurements Intervals [place] Rate: 83 P: 43 NM: 137 QRS: 56 QRSD: 93 T: 26 QT: 286 QTc: 326 Interpretive Statements SINUS RHYTHM NONSPECIFIC T-WAVE ABNORMALITY Electronically Signed On 12-24-2016 15:16:59 EDT by Jett Nunez
== END 2016-12-24 10:18 | disposition home or self-care (01) | DRG 690 ==
LOC: EMEROO 05:21 → 2ANU 05:21 → SUATTDRO 16:26
PROVIDERS: ADMIT Internal Medicine; ATTEND Internal Medicine